=== PATIENT | female | born 1980 | race Caucasian/White ===

== ENCOUNTER 2016-09-29 22:41 | Emergency (ER) | payer MEDICAID ==
[2016-09-29 22:49] VITALS: BP 135/96
--- NOTE | 2016-09-30 00:31 | EDM.PDOC ---
ED HPI GENERAL MEDICAL PROBLEM - General Chief Complaint: Back Pain or Injury Stated Complaint: LOWER BACK PAIN Time Seen by Provider: 09/30/16 00:31 - History of Present Illness INITIAL COMMENTS - FREE TEXT/NARRATIVE: 35-year-old female presents emergency room with low back pain. This is been getting worse for the last several days the patient is concerned perhaps she is . Patient denies any recent trauma or falls she has a history of herniated disks but this is a different type of discomfort. She is not having any pain down her legs she's had no loss of bowel or bladder control. Patient denies any significant abdominal discomfort no nausea vomiting diarrhea or constipation. She is not having any leg pain or tingling or numbness. Pain is localized to her low back Lower Back Pain Score (Numeric/FACES): 7 - Related Data Allergies Allergy/AdvReac Type Severity Reaction Status Date / Time acetaminophen [From Vicodin] Allergy Anaphylactic Verified 09/29/16 22:49 Shock hydrocodone bitartrate Allergy Anaphylactic Verified 09/29/16 22:49 [From Vicodin] Shock bees Allergy Bronchospas Uncoded 09/29/16 22:49 ms Home Meds: Home Meds Escitalopram [Lexapro] 10 mg PO DAILY 09/29/16 [History] Gabapentin [Neurontin] 600 mg PO BEDTIME 09/29/16 [History] Mometasone/Formoterol [Dulera 100-5 MCG] 1 inh INH BID 09/29/16 [History] Montelukast [Singulair] 1 tab PO BEDTIME 09/29/16 [History] Topiramate [Topamax] 50 mg PO BID 09/29/16 [History] Past Medical History 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: 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: Musculoskeletal History: Reports: Other (See Below) Other Musculoskeletal History: sciatica pain - Past Surgical History GI Surgical History: Reports: Cholecystectomy Female Surgical History: Reports: Tubal Ligation Social & Family History - Tobacco Use Smoking Status *Q: Current Every Day Smoker Years of Tobacco use: 15 Packs/Tins Daily: 0.5 - Caffeine Use Caffeine Use: Reports: Soda - Recreational Drug Use Recreational Drug Use: No ED ROS GENERAL - Review of Systems Review Of Systems: See Below Constitutional: Reports: No Symptoms Respiratory: Reports: No Symptoms Cardiovascular: Reports: No Symptoms GI/Abdominal: Reports: No Symptoms Musculoskeletal: Reports: Back Pain Neurological: Reports: No Symptoms ED EXAM,LOWER BACK PAIN/INJURY - Physical Exam Exam: See Below Exam Limited By: No Limitations General Appearance: Alert, No Apparent Distress Neck: Normal Inspection, Supple, Non-Tender, Full Range of Motion. No: Tender Midline Respiratory/Chest: No Respiratory Distress, Lungs Clear, Normal Breath Sounds Cardiovascular: Regular Rate, Rhythm, No Edema, No Murmur GI/Abdominal: Normal Bowel Sounds, Soft, Non-Tender Back Exam: Normal Inspection, Other (She has some mild paraspinous discomfort no spinous process tenderness with palpation no midline discomfort). No: CVA Tenderness (L), CVA Tenderness (R) Extremities: Normal Inspection, No Pedal Edema, Other (Distracted straight leg raises normal.) Course - Vital Signs Last Recorded V/S: Last Vital Signs Temp 36.6 C 09/29/16 22:46 Pulse 88 09/29/16 22:46 Resp 16 09/29/16 22:46 BP 135/96 H 09/29/16 22:46 Pulse Ox 100 09/29/16 22:46 - Orders/Labs/Meds Labs: Laboratory Tests 09/30/16 Range/Units 00:42 Urine HCG, Qual Negative (NEGATIVE) Meds: Medications Discontinued Medications Generic Name Dose Route Start Last Admin Trade Name Sugar PRN Reason Stop Dose Admin Ketorolac Tromethamine 30 mg 09/30/16 01:09 09/30/16 01:15 Toradol IM 09/30/16 01:10 30 mg ONETIME ONE Administration - Radiology Interpretation Free Text/Narrative:: confirmed to be negative then the patient received 30 mg of Toradol and is doing better. Departure - Departure Time of Disposition: 01:43 Disposition: Home, Self-Care 01 Clinical Impression: Low back pain - Discharge Information Forms: ED Department Discharge Additional Instructions: Return to the emergency room with any questions problems or worsening symptoms. Tomorrow start Aleve 220 mg 2 tablets twice daily with meals. Start famotidine or Pepcid 20 mg daily. Follow-up in the clinic early next week for recheck.
[2016-09-30] MEDS ORDERED: Ketorolac 30 MG/ML SDV IM ONE (01:09)
== END 2016-09-30 01:55 | disposition home or self-care (01) ==
LOC: JD.ED 22:41
DX: M54.5 Low back pain (principal); F17.210 Nicotine dependence, cigarettes, uncomplicated; J45.909 Unspecified asthma, uncomplicated; Z98.51 Tubal ligation status; Z90.49 Acquired absence of other specified parts of digestive tract; Z79.899 Other long term (current) drug therapy; Z91.030 Bee allergy status; Z88.6 Allergy status to analgesic agent
CPT/HCPCS: 81025; 96372; 99283; J1885

== ENCOUNTER 2017-01-08 15:46 | Emergency (ER) | payer MEDICAID ==
[2017-01-08 16:05] VITALS: BP 137/89
--- NOTE | 2017-01-08 16:32 | EDM.PDOC ---
ED HPI GENERAL MEDICAL PROBLEM - General Chief Complaint: ENT Problem Stated Complaint: POSS EAR INFECTION Time Seen by Provider: 01/08/17 16:06 Source of Information: Reports: Patient, RN Notes Reviewed - History of Present Illness INITIAL COMMENTS - FREE TEXT/NARRATIVE: 36 show female comes in with severe right ear discomfort. She's had this on and off for the past 3 days but worse last night and today. The pain comes and goes but when present very severe, sharp and stabbing. Has had mild nasal and sinus congestion for a few days and very mild scratchy throat. No obvious fever. There 's been no drainage from the ear. 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 (see below) Other Treatments INVESTMENT BANKING MANAGER: tylenol and motrin Right Ear Pain Score (Numeric/FACES): 8 - Related Data Allergies Allergy/AdvReac Type Severity Reaction Status Date / Time acetaminophen [From Vicodin] Allergy Anaphylactic Verified 09/29/16 22:49 Shock hydrocodone bitartrate Allergy Anaphylactic Verified 09/29/16 22:49 [From Vicodin] Shock bees Allergy Bronchospas Uncoded 09/29/16 22:49 ms Home Meds: Home Meds Escitalopram [Lexapro] 10 mg PO DAILY 09/29/16 [History] Montelukast [Singulair] 1 tab PO BEDTIME 09/29/16 [History] Topiramate [Topamax] 50 mg PO BID 09/29/16 [History] Albuterol [Proventil HFA] 1 - 2 puff INH ASDIRECTED PRN 01/08/17 [History] Fluticasone/Salmeterol [Advair 250-50 Diskus] 1 puff INH BID 01/08/17 [History] Past Medical History 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 Denies: Dental Pain, Ear Discharge (, right ear) Respiratory: Denies: Shortness of Breath, Cough Cardiovascular: Denies: Chest Pain GI/Abdominal: Reports: No Symptoms Musculoskeletal: Reports: No Symptoms Skin: Reports: No Symptoms. Denies: Rash Neurological: Reports: No Symptoms ED EXAM, ENT - Physical Exam Exam: See Below General Appearance: Alert, No Apparent Distress Eye Exam: Bilateral Eye: PERRL Ears: Normal External Exam, Normal Canal, TM Bulging (Mild bilateral), TM Fluid (Moderate right-sided), Other (There is no tenderness of the outer canal area) Nose: Normal Inspection Mouth/Throat: Normal Inspection Head: Atraumatic. No: Facial Swelling, Facial Tenderness Respiratory/Chest: No Respiratory Distress, Lungs Clear Cardiovascular: Regular Rate, Rhythm Extremities: Normal Inspection Neurological: Alert, Oriented, No Motor/Sensory Deficits Skin: Warm, Dry, Normal Color, No Rash Course - Vital Signs Last Recorded V/S: Last Vital Signs Temp 98.0 F 01/08/17 16:04 Pulse 78 01/08/17 16:04 Resp 20 01/08/17 16:04 BP 137/89 01/08/17 16:04 Pulse Ox 98 01/08/17 16:04 Departure - Departure Time of Disposition: 16:31 Disposition: Home, Self-Care 01 Condition: Fair Clinical Impression: Otitis media Qualifiers: Otitis media type: serous Chronicity: acute Laterality: right Recurrence: not specified as recurrent Qualified Code(s): H65.01 - Acute serous otitis media, right ear - Discharge Information Referrals: Janny Chavarria MD [Primary Care Provider] - Forms: ED Department Discharge Additional Instructions: Amoxicillin 1000 mg by mouth needed prescription filled, then 500 mg at bedtime and then continue 1000 mg or 2 500 mg capsules twice daily until gone, Tylenol or ibuprofen for mild to moderate discomfort or one half tablet Percocet every 4 -6 hours if needed for severe pain. Do not drive or work when taking Percocet, follow-up clinic if not much better within 3-4 days as expected, return to ED if symptoms worsening in any way
== END 2017-01-08 16:40 | disposition home or self-care (01) ==
LOC: JD.ED 15:46
DX: H65.01 Acute serous otitis media, right ear (principal); J45.909 Unspecified asthma, uncomplicated; F17.210 Nicotine dependence, cigarettes, uncomplicated; Z88.6 Allergy status to analgesic agent; Z88.5 Allergy status to narcotic agent; Z79.899 Other long term (current) drug therapy
CPT/HCPCS: 99283

== ENCOUNTER 2017-04-20 17:54 | Emergency (ER) | payer MEDICAID ==
[2017-04-20 18:05] VITALS: BP 157/92
--- NOTE | 2017-04-20 18:36 | EDM.PDOC ---
<MarilynMaggie jackson - Last Filed: 04/20/17 18:27> ED HPI GENERAL MEDICAL PROBLEM - General Chief Complaint: Back Pain or Injury Stated Complaint: SLIPPED ON ICE Time Seen by Provider: 04/20/17 19:00 - History of Present Illness INITIAL COMMENTS - FREE TEXT/NARRATIVE: Patient is a 36 year old female here today for complaints of coccyx pain following a fall. She reports she fell on ice while getting out of a vehicle and landed on her coccyx. She denies hitting her head or loss of consciousness. She states she has associated numbness and tingling in her bilateral legs. She has associated nausea do to pain but no vomiting. She denies previous buttocks or pelvic injuries. Sacral Pain Score (Numeric/FACES): 9 - Related Data Allergies Allergy/AdvReac Type Severity Reaction Status Date / Time acetaminophen [From Vicodin] Allergy Anaphylactic Verified 04/20/17 18:01 Shock hydrocodone bitartrate Allergy Anaphylactic Verified 04/20/17 18:01 [From Vicodin] Shock bees Allergy Bronchospas Uncoded 09/29/16 22:49 ms Home Meds: Home Meds Escitalopram [Lexapro] 10 mg PO DAILY 09/29/16 [History] Montelukast [Singulair] 1 tab PO BEDTIME 09/29/16 [History] Topiramate [Topamax] 100 mg PO DAILY 09/29/16 [History] Albuterol [Proventil HFA] 1 - 2 puff INH ASDIRECTED PRN 01/08/17 [History] Fluticasone/Salmeterol [Advair 250-50 Diskus] 1 puff INH BID 01/08/17 [History] Acetaminophen/oxyCODONE [Percocet 325-5 MG] 1 tab PO Q4HR PRN #20 tab 04/20/17 [ Rx] Past Medical History 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: Musculoskeletal History: Reports: Back Pain, Chronic, Other (See Below) Other Musculoskeletal History: sciatica pain Neurological History: Reports: Migraines Psychiatric History: Reports: Anxiety - Past Surgical History GI Surgical History: Reports: Cholecystectomy Female Surgical History: Reports: Tubal Ligation Social & Family History - Tobacco Use Smoking Status *Q: Current Every Day Smoker Years of Tobacco use: 12 Packs/Tins Daily: 0.5 Used Tobacco, but Quit: No - Caffeine Use Caffeine Use: Reports: None - Recreational Drug Use Recreational Drug Use: No ED ROS GENERAL - Review of Systems Musculoskeletal: Reports: Back Pain, Leg Pain Neurological: Reports: Numbness (in bilateral legs), Tingling (in bilateral legs ) ED EXAM,LOWER BACK PAIN/INJURY - Physical Exam Exam Limited By: No Limitations Back Exam: Normal Inspection, Other (coccyx tenderness) Extremities: Normal Inspection, Normal Range of Motion, Non-Tender Neurological: Alert, Normal Mood/Affect, Normal Dorsiflexion, Normal Plantar Flexion Course - Vital Signs Last Recorded V/S: Last Vital Signs Temp 36.2 C 04/20/17 18:02 Pulse 73 04/20/17 18:02 Resp 18 04/20/17 18:02 BP 157/92 H 04/20/17 18:02 Pulse Ox 95 04/20/17 18:02 - Orders/Labs/Meds Meds: Medications Discontinued Medications Generic Name Dose Route Start Last Admin Trade Name Freq PRN Reason Stop Dose Admin Ketorolac Tromethamine 60 mg 04/20/17 19:13 04/20/17 19:21 Toradol IM 04/20/17 19:14 60 mg ONETIME ONE Administration Ondansetron HCl 4 mg 04/20/17 18:41 04/20/17 19:07 Zofran Odt PO 04/20/17 18:42 4 mg ONETIME ONE Administration Departure - Departure Disposition: Home, Self-Care 01 Clinical Impression: Fractured coccyx Qualifiers: Encounter type: initial encounter Fracture type: closed Qualified Code(s): S32.2XXA - Fracture of coccyx, initial encounter for closed fracture - Discharge Information Prescriptions: Acetaminophen/oxyCODONE [Percocet 325-5 MG] 1 tab PO Q4HR PRN #20 tab PRN Reason: Pain Instructions: Tailbone Injury, [id number] Referrals: Janny Chavarria MD [Primary Care Provider] - Forms: ED Department Discharge Additional Instructions: Recommend using ice or heat for the to the sore areas. Take [id number] Tylenol or Motrin as needed for pain relief. For pain not relieved by Tylenol or Motrin may take Percocet 1 tab every 4-[address] machinery within 12 hours of taking Percocet. Percocet can be habit-forming, take as few these as needed to control your pain. Recommend purchasing a donut pillow, these are available at the medical supply [employer] and [employer]. follow-up with family practice provider within 2 weeks. Please return to the ER if your symptoms change or worsen. <Adrianne Bojorquez - Last Filed: 04/22/17 13:54> ED HPI GENERAL MEDICAL PROBLEM - General Source of Information: Reports: Patient History Limitations: Reports: No Limitations - History of Present Illness INITIAL COMMENTS - FREE TEXT/NARRATIVE: Patient was initially seen by DEEPA Zarco. I've seen the patient and agree with her history of present illness. Additionally, patient reports to me that her pain is currently a 9 out of 10. She states that she has having trouble sitting due to the pain. She did drive herself here to the ER. ED ROS GENERAL - Review of Systems Review Of Systems: See Below GI/Abdominal: Reports: Nausea. Denies: Vomiting Musculoskeletal: Reports: Back Pain (low back/buttocks) ED EXAM,LOWER BACK PAIN/INJURY - Physical Exam Exam: See Below Exam Limited By: No Limitations General Appearance: Alert, WD/WN, Mild Distress Respiratory/Chest: No Respiratory Distress Cardiovascular: Normal Peripheral Pulses (2+ posterior tibialis), Regular Rate, Rhythm Back Exam: Normal Inspection. No: Vertebral Tenderness Psychiatric: Normal Affect, Normal Mood Skin Exam: Warm, Dry, Normal Color Course - Radiology Interpretation Free Text/Narrative:: X-ray of the sacrum and coccyx show a questionable coccyx fracture. Previous lumbar spine x-rays for comparison. - Re-Assessments/Exams Free Text/Narrative Re-Assessment/Exam: 04/20/17 19:56 The patient was initially seen by DEEPA Zarco. I agree with the history of present illness, review of systems and physical exam as documented by Maggie. The patient was given the option for a CT scan, however, she was educated that likely even if there is a hairline fracture in her coccyx this will not change our treatment plan. She was offered a CT scan port versus plain films and opted instead for the plain films which I feels appropriate. Patient was offered pain medication, however, because she drove here and did not have a right home we will give her Toradol here in the ER. I reviewed the x-ray results with the patient. We will discharge her home with pain medications. Discharge instructions as documented. Departure - Departure Time of Disposition: 19:57 Condition: Fair
[2017-04-20] MEDS: Ondansetron 4 MG Tab.DIS PO ONE (19:07)
[2017-04-20] MEDS: Ketorolac 60 MG/2 ML SDV IM ONE (19:21)
--- NOTE | 2017-04-21 06:03 | CR ---
Sacrum and coccyx: Three views of the sacrum and coccyx were obtained. Disc space narrowing labeled as S1-S2 is seen most likely due to rudimentary disc and transitional segment. Mild sclerosis compatible with slight degenerative change is noted within the left sacroiliac joint. No fracture or other acute abnormality is seen. Impression: 1. Nonacute findings as noted above. Nothing acute is appreciated. Diagnostic code #2
== END 2017-04-20 20:21 | disposition home or self-care (01) ==
LOC: JD.ED 17:54
DX: S32.2XXA Fracture of coccyx, initial encounter for closed fracture (principal); F17.210 Nicotine dependence, cigarettes, uncomplicated; Z79.899 Other long term (current) drug therapy; Z88.6 Allergy status to analgesic agent; Z88.5 Allergy status to narcotic agent; Z91.030 Bee allergy status; W00.2XXA Other fall from one level to another due to ice and snow, initial encounter
CPT/HCPCS: 72220; 96372; 99284; A9270; J1885

== ENCOUNTER 2018-07-02 20:02 | Emergency (ER) | payer SELFPAY ==
[2018-07-02 20:26] VITALS: BP 142/92
[2018-07-02] MEDS ORDERED: Sodium Chloride 0.9% 10 ML Syringe FLUSH PRN (20:34)
--- NOTE | 2018-07-02 20:50 | EDM.PDOC ---
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 Discomfort comes and goes. She is concerned that her LMP was back in February 3 months ago, before that had been regular. No vaginal bleeding or spotting. Hx of tubal ligation about 9 yrs ago. No upper abd, back, shoulder or chest disomfort. No nausea, vomiting or bladder sx. Lower Pelvic Pain Score (Numeric/FACES): 5 - Related Data Allergies Allergy/AdvReac Type Severity Reaction Status Date / Time acetaminophen [From Vicodin] Allergy Anaphylactic Verified 07/02/18 21:18 Shock hydrocodone bitartrate Allergy Anaphylactic Verified 07/02/18 21:18 [From Vicodin] Shock bees Allergy Bronchospas Uncoded 09/29/16 22:49 ms Home Meds: Home Meds . 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: Musculoskeletal History: Reports: Back Pain, Chronic, Other (See Below) Other Musculoskeletal History: sciatica pain Neurological History: Reports: Migraines Psychiatric History: Reports: Anxiety - Past Surgical History GI Surgical History: Reports: Cholecystectomy Female Surgical History: Reports: Tubal Ligation Other Female Surgeries/Procedures: 2009 Social & Family History - Family History Family Medical History: Noncontributory - Tobacco Use Smoking Status *Q: Current Every Day Smoker Years of Tobacco use: 16 Packs/Tins Daily: 1 - Caffeine Use Caffeine Use: Reports: None ED ROS GENERAL - Review of Systems Review Of Systems: See Below Constitutional: Denies: Fever, Chills, Diaphoresis HEENT: Denies: Throat Pain Respiratory: Denies: Shortness of Breath, Pleuritic Chest Pain, Hemoptysis GI/Abdominal: Reports: Abdominal Pain (low mid pelvic). Denies: Diarrhea, Nausea, Vomiting Musculoskeletal: Denies: Shoulder Pain, Arm Pain, Back Pain, Leg Pain Skin: Reports: No Symptoms ED EXAM - Physical Exam Exam: See Below General Appearance: Alert, No Apparent Distress Eye Exam: Bilateral Eye: PERRL Throat/Mouth: Normal Inspection, Normal Oropharynx Head: Atraumatic Neck: Supple Respiratory/Chest: No Respiratory Distress, Lungs Clear, Normal Breath Sounds Cardiovascular: Regular Rate, Rhythm GI/Abdominal Exam: Soft, Tender (very minimal tenderness low mid pelvis). No: Guarding, Rebound Extremities: No: Leg Pain Neurological: Alert, Oriented, No Motor/Sensory Deficits Skin Exam: Warm, Dry, Normal Color Course - Vital Signs Last Recorded V/S: Last Vital Signs Temp 98.5 F 07/02/18 20:23 Pulse 80 07/02/18 20:23 Resp 18 07/02/18 20:23 BP 142/92 H 07/02/18 20:23 Pulse Ox 100 07/02/18 20:23 - Orders/Labs/Meds Orders: Active Orders 24 hr Category Date Time Status Peripheral IV Care [RC] . DIRECTED Care 07/02/18 20:36 Active OB Transvaginal [US] Stat Exams 07/02/18 20:35 Taken Peripheral IV Insertion Adult [OM.PC] Stat Oth 07/02/18 20:35 Ordered Labs: Laboratory Tests 07/02/18 07/02/18 07/02/18 Range/Units 20:50 20:50 20:50 WBC 8.17 (3.98-10.04) K/mm3 RBC 4.35 (3.98-5.22) M/mm3 Hgb 10.4 L (11.2-15.7) gm/L Hct 34.1 (34.1-44.9) % MCV 78.4 L (79.4-94.8) fl MCH 23.9 L (25.6-32.2) pg MCHC 30.5 L (32.2-35.5) g/dl RDW Std Deviation 45.4 (36.4-46.3) fL Plt Count 301 (182-369) K/mm3 MPV 9.4 (9.4-12.3) fl Neut % (Auto) 58.1 (34.0-71.1) % Lymph % (Auto) 32.4 (19.3-51.7) % Coffee % (Auto) 6.6 (4.7-12.5) % Eos % (Auto) 2.6 (0.7-5.8) Baso % (Auto) 0.2 (0.1-1.2) % Neut # (Auto) 4.74 (1.56-6.13) K/mm3 Lymph # (Auto) 2.65 (1.18-3.74) K/mm3 Coffee # (Auto) 0.54 H (0.24-0.36) K/mm3 Eos # (Auto) 0.21 (0.04-0.36) K/mm3 Baso # (Auto) 0.02 (0.01-0.08) K/mm3 Sodium 143 (136-145) mEq/L Potassium 2.9 L (3.5-5.1) mEq/L Chloride 106 (98-107) mEq/L Carbon Dioxide 27 (21-32) mEq/L Anion Gap 12.9 (5-15) BUN 7 (7-18) mg/dL Creatinine 0.7 (0.55-1.02) mg/dL Est Cr Clr Drug Dosing 99.01 mL/min Estimated GFR (MDRD) > 60 (>60) mL/min BUN/Creatinine Ratio 10.0 L (14-18) Glucose 122 H (74-106) mg/dL Calcium 8.9 (8.5-10.1) mg/dL Total Bilirubin 0.2 (0.2-1.0) mg/dL AST 21 (15-37) U/L ALT 42 (14-59) U/L Alkaline Phosphatase 52 (46-116) U/L Total Protein 7.6 (6.4-8.2) g/dl Albumin 3.7 (3.4-5.0) g/dl Globulin 3.9 gm/dL Albumin/Globulin Ratio 1.0 (1-2) HCG, Qual Negative (NEGATIVE) Meds: Medications Discontinued Medications Generic Name Dose Route Start Last Admin Trade Name Freq PRN Reason Stop Dose Admin Potassium Chloride 20 meq 07/02/18 22:38 07/02/18 22:42 Klor-Con M20 PO 07/02/18 22:39 20 meq ONETIME ONE Administration Sodium Chloride 10 ml 07/02/18 20:34 07/02/18 20:55 Saline Flush FLUSH 10 ml ASDIRECTED PRN Administration Keep Vein Open - Re-Assessments/Exams Free Text/Narrative Re-Assessment/Exam: 07/02/18 22:55 pelvic US ordered after patient exam due to hx of LMP 3 months ago, 3 positive tests at home over the past 2 weeks and now 3 days hx of pelvic pain, strong need to rule out ectopic . Our serum HCG did eventually come back neg. pelvic US show R ovarian cyst, no evidence for intra or extra uterine . See report for details. Serum K did come back low at 2.9. Departure - Departure Time of Disposition: 22:44 Disposition: Home, Self-Care 01 Condition: Fair Clinical Impression: Hypokalemia Ovarian cyst Qualifiers: Laterality: right Qualified Code(s): N83.201 - Unspecified ovarian cyst, right side - Discharge Information Instructions: Ovarian Cyst, [id number] Referrals: Janny Chavarria MD [Primary Care Provider] - Forms: ED Department Discharge Additional Instructions: your potassium has come back low at 2.9. Bananas are an excellent source of potassium so try eat 1 or 2 daily. Potatoes are also high in potassium as well as other fruit and vegetables. Take a potassium supplement as well once or twice daily. Your ultrasound this evening does not show inside or outside the uterus and our HCG test did come back negative. Follow up clinic as needed. Return to ED as needed if symptoms worsening in any way. - My Orders Last 24 Hours: My Active Orders 07/02/18 20:35 OB Transvaginal [US] Stat Peripheral IV Insertion Adult [OM.PC] Stat 07/02/18 20:36 Peripheral IV Care [RC] . DIRECTED - Assessment/Plan Last 24 Hours: My Active Orders 07/02/18 20:35 OB Transvaginal [US] Stat Peripheral IV Insertion Adult [OM.PC] Stat 07/02/18 20:36 Peripheral IV Care [RC] . DIRECTED
[2018-07-02] MEDS ORDERED: Potassium Chloride 20 MEQ Tab.ER PO ONE (22:38)
--- NOTE | 2018-07-03 07:57 | US ---
Obstetrical ultrasound: Multiple real-time images were obtained transvaginally. Comparison: No previous study. No gestational sac seen within the endometrial cavity. No adnexal abnormalities are seen. Incidental nabothian cyst is present. Endometrial thickness is 9 mm. Follicles are seen within both ovaries. Small hypoechoic area is noted within the right ovary most likely due to small corpus luteum cyst that is collapsing. No free fluid is seen. Impression: 1. No intrauterine gestational sac or adnexal abnormalities. If patient has a positive test, findings could represent miscarriage, unlikely nonvisualized ectopic or too early to visualize. Diagnostic code #1 I agree with preliminary report from [facility], finalized on 07/02/18, 11:03 PM Central Time q
== END 2018-07-02 22:52 | disposition home or self-care (01) ==
LOC: JD.ED 20:02
DX: N83.201 Unspecified ovarian cyst, right side (principal); F17.210 Nicotine dependence, cigarettes, uncomplicated; E87.6 Hypokalemia; Z88.8 Allergy status to other drugs, medicaments and biological substances; Z91.030 Bee allergy status
CPT/HCPCS: 36415; 76817; 80053; 84703; 85025; 99284; A9270; 99283

== ENCOUNTER 2020-06-14 19:23 | Emergency (ER) | payer MEDICAID ==
[2020-06-14 19:35] VITALS: BP 162/72; PULSE 73
--- NOTE | 2020-06-14 19:57 | EDM.PDOC ---
ED HPI GENERAL MEDICAL PROBLEM - General Chief Complaint: General Stated Complaint: SWOLLEN GLANDS Time Seen by Provider: 06/14/20 19:34 Source of Information: Reports: Patient History Limitations: Reports: No Limitations - History of Present Illness INITIAL COMMENTS - FREE TEXT/NARRATIVE: This is a 39-year-old female. She has rheumatoid arthritis and she was on prednisone for about 11 months and it did not seem to be helping so 4 weeks ago they switched over to methotrexate. Over the last week she has noted that her lymph nodes and body have been hurting and aching and some mild swelling she has had some burning in her mouth but no actual sores and a lot of abdominal discomfort that feels like distention or bloating. She comes to the ER because the soreness in her muscles in her lymph nodes is getting to the point where she cannot tolerate it. She denies any fever or chills she has had no diarrhea she has had no rash. Due to the constant aching and soreness she is not able to sleep. Denies any fever or chills she does have a history of asthma but that has not flared up and she has had no cough. - Related Data Allergies Allergy/AdvReac Type Severity Reaction Status Date / Time acetaminophen [From Vicodin] Allergy Anaphylactic Verified 06/14/20 19:35 Shock hydrocodone bitartrate Allergy Anaphylactic Verified 06/14/20 19:35 [From Vicodin] Shock bees Allergy Bronchospas Uncoded 09/29/16 22:49 ms Home Meds: Home Meds Albuterol [Ventolin HFA] 1 puff INH BID PRN 06/14/20 [History] Folic Acid 1 mg PO FR 06/14/20 [History] Methotrexate 10 mg PO FR 06/14/20 [History] Montelukast Sodium [Singulair] 10 mg PO BEDTIME 06/14/20 [History] Topiramate [Topamax] 50 mg PO BID 06/14/20 [History] traMADol [Ultram] 50 mg PO Q4H PRN #12 tab 06/14/20 [Rx] Past Medical History - Past Health History Medical/Surgical History: Denies Medical/Surgical History 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: Asthma [employer]ER History: Reports: Musculoskeletal History: Reports: Back Pain, Chronic, Other (See Below) Other Musculoskeletal History: sciatica pain Neurological History: Reports: Migraines Psychiatric History: Reports: Anxiety - Past Surgical History GI Surgical History: Reports: Cholecystectomy Female Surgical History: Reports: Tubal Ligation Other Female Surgeries/Procedures: 2010 Social & Family History - Family History Family Medical History: No Pertinent Family History - Tobacco Use Tobacco Use Status *Q: Current Every Day Tobacco User Years of Tobacco use: 20 Packs/Tins Daily: 0.5 - Caffeine Use Caffeine Use: Reports: None - Recreational Drug Use Recreational Drug Use: No ED ROS GENERAL - Review of Systems Review Of Systems: See Below Constitutional: Reports: Malaise. Denies: Fever, Chills HEENT: Reports: Other (Mouth burning) Respiratory: Denies: Shortness of Breath, Cough Cardiovascular: Denies: Chest Pain Endocrine: Reports: No Symptoms GI/Abdominal: Reports: Distension. Denies: Diarrhea, Nausea, Vomiting : Reports: No Symptoms Musculoskeletal: Reports: Other (Myalgias) Skin: Reports: No Symptoms Neurological: Reports: No Symptoms Psychiatric: Reports: No Symptoms Hematologic/Lymphatic: Reports: No Symptoms ED EXAM, GENERAL - Physical Exam Exam: See Below Exam Limited By: No Limitations General Appearance: Alert, WD/WN, No Apparent Distress Eye Exam: Bilateral Eye: Normal Inspection Ears: Normal External Exam Throat/Mouth: Normal Inspection, Normal Lips, Normal Voice, No Airway Compromise, Other (No stomatitis is noted.) Head: Normocephalic Neck: Supple, Other (She is tender in the submental area bilaterally may be some mild swelling but I do not feel a lot of enlarged lymph nodes.) Respiratory/Chest: No Respiratory Distress, Lungs Clear, Normal Breath Sounds, Other (She complains of sternal notch and clavicle area tenderness and swelling but I do not feel any lymph nodes presently.) Cardiovascular: Regular Rate, Rhythm, No Murmur GI/Abdominal: Soft, Non-Tender Back Exam: Full Range of Motion Extremities: Normal Range of Motion, Other (In her right axilla she has a slightly enlarged boggy type lymph node with this tender it does not seem to be in the left axilla or in her groins bilaterally. She does complain of swelling in her neck and also her anterior chest.) Neurological: Alert, Oriented Psychiatric: Normal Affect, Normal Mood Skin Exam: Warm, Dry Course - Vital Signs Last Recorded V/S: Last Vital Signs Temp 97.6 F 06/14/20 19:33 Pulse 73 06/14/20 19:33 Resp 16 06/14/20 19:33 BP 162/72 H 06/14/20 19:33 Pulse Ox 99 06/14/20 19:33 - Orders/Labs/Meds Labs: Laboratory Tests 06/14/20 06/14/20 Range/Units 20:18 20:18 WBC 8.36 (3.98-10.04) K/mm3 RBC 4.42 (3.98-5.22) M/mm3 Hgb 11.2 (11.2-15.7) gm/dl Hct 36.2 (34.1-44.9) % MCV 81.9 D (79.4-94.8) fl MCH 25.3 L (25.6-32.2) pg MCHC 30.9 L (32.2-35.5) g/dl RDW Std Deviation 47.2 H (36.4-46.3) fL Plt Count 239 (182-369) K/mm3 MPV 9.7 (9.4-12.3) fl Neut % (Auto) 56.0 (34.0-71.1) % Lymph % (Auto) 33.9 (19.3-51.7) % [place] % (Auto) 6.7 (4.7-12.5) % Eos % (Auto) 3.0 (0.7-5.8) Baso % (Auto) 0.2 (0.1-1.2) % Neut # (Auto) 4.68 (1.56-6.13) K/mm3 Lymph # (Auto) 2.83 (1.18-3.74) K/mm3 [place] # (Auto) 0.56 H (0.24-0.36) K/mm3 Eos # (Auto) 0.25 (0.04-0.36) K/mm3 Baso # (Auto) 0.02 (0.01-0.08) K/mm3 Sodium 142 (136-145) mEq/L Potassium 3.6 (3.5-5.1) mEq/L Chloride 108 H (98-107) mEq/L Carbon Dioxide 23 (21-32) mEq/L Anion Gap 14.6 (5-15) BUN 12 (7-18) mg/dL Creatinine 0.7 (0.55-1.02) mg/dL Est Cr Clr Drug Dosing 97.09 mL/min Estimated GFR (MDRD) > 60 (>60) mL/min BUN/Creatinine Ratio 17.1 (14-18) Glucose 132 H (74-106) mg/dL Calcium 8.4 L (8.5-10.1) mg/dL Total Bilirubin 0.3 (0.2-1.0) mg/dL AST 36 (15-37) U/L ALT 73 H (14-59) U/L Alkaline Phosphatase 43 L (46-116) U/L Creatine Kinase 118 (26-192) U/L C-Reactive Protein 2.0 H* (<1.0) mg/dL Total Protein 7.1 (6.4-8.2) g/dl Albumin 3.4 (3.4-5.0) g/dl Globulin 3.7 gm/dL Albumin/Globulin Ratio 0.9 L (1-2) - Re-Assessments/Exams Free Text/Narrative Re-Assessment/Exam: 06/14/20 21:26 I spoke to the patient regarding her lab results. She does not appear to have bone marrow suppression, her liver enzymes are good her kidney function looks good. Her C-reactive protein was 2 which is just mildly elevated. She only takes methotrexate once a week and that was on Tuesday. I encouraged her to call her water commissioner on Tuesday to see if they want her to continue the methotrexate next Tuesday with the symptoms that seems to be developing. The patient states she understands. Departure - Departure Time of Disposition: 21:27 Disposition: Home, Self-Care 01 Condition: Fair Clinical Impression: Myalgia, Lymphadenitis Rheumatoid arthritis Qualifiers: Rheumatoid arthritis location: multiple sites Rheumatoid factor presence: unspecified presence Qualified Code(s): M06.9 - Rheumatoid arthritis, unspecified - Discharge Information *PRESCRIPTION DRUG MONITORING PROGRAM REVIEWED*: Not Applicable *COPY OF PRESCRIPTION DRUG MONITORING REPORT IN PATIENT IRINEO: Not Applicable Prescriptions: traMADol [Ultram] 50 mg PO Q4H PRN #12 tab PRN Reason: Pain Instructions: Muscle Pain, Adult, Arthritis, [id number] Referrals: Janny Chavarria MD [Primary Care Provider] - Forms: ED Department Discharge Additional Instructions: On Tuesday call your water commissioner and let them know the symptoms that you are having of the burning in the mouth and the abdominal discomfort and the swelling and pain of the lymph nodes in general muscle pain, certainly take the tramadol as needed for comfort, let the water commissioner know that your complete blood count was essentially normal with no suppression of the bone marrow, your kidney function and liver function were normal, your C-reactive protein was 2. Follow- up with the water commissioner as they suggest and continue your medications as they suggest, return to the ER if needed Sepsis Event Note (ED) - Evaluation Sepsis Screening Result: No Definite Risk - Focused Exam Vital Signs: Vital Signs Temp Pulse Resp BP Pulse Ox 06/14/20 19:33 97.6 F 73 16 162/72 H 99
== END 2020-06-14 21:42 | disposition home or self-care (01) ==
LOC: JD.ED 19:23
DX: M06.9 Rheumatoid arthritis, unspecified (principal); I88.9 Nonspecific lymphadenitis, unspecified; J45.909 Unspecified asthma, uncomplicated; Z88.6 Allergy status to analgesic agent; Z88.5 Allergy status to narcotic agent; Z91.030 Bee allergy status; Z79.899 Other long term (current) drug therapy; Z72.0 Tobacco use
CPT/HCPCS: 36415; 80053; 82550; 85025; 86140; 99283

== ENCOUNTER 2020-08-23 19:34 | Emergency (ER) | payer MEDICAID ==
[2020-08-23] MEDS ORDERED: Sodium Chloride 0.9% 1,000 ML IV STA (20:04)
--- NOTE | 2020-08-23 20:14 | EDM.PDOC ---
ED HPI GENERAL MEDICAL PROBLEM - General Chief Complaint: Abdominal Pain Stated Complaint: LOWER ABDOMINAL PAIN Time Seen by Provider: 08/23/20 19:41 Source of Information: Reports: Patient, RN Notes Reviewed History Limitations: Reports: No Limitations - History of Present Illness INITIAL COMMENTS - FREE TEXT/NARRATIVE: Patient is a 39-year-old female presenting to the emergency department with complaints of lower abdominal pain. Reports that she felt well last evening upon going to sleep, however she awoke with this discomfort. It has been consistently painful throughout the day. She has had no nausea, vomiting, diarrhea, fever, or chills. Reports pain is throughout her lower abdomen. States she had a normal bowel movement yesterday. Denies the possibility of pr egnancy as she has had her tubes tied. She has also had her gallbladder out in the past. She still has her appendix. Denies any history of diverticulitis. She does have a history of RA but denies any history of colitis. Lower Abdominal Pain Score (Numeric/FACES): 8 - Related Data Allergies Allergy/AdvReac Type Severity Reaction Status Date / Time acetaminophen [From Vicodin] Allergy Anaphylactic Verified 08/23/20 19:50 Shock bee venom protein (honey bee) Allergy Bronchospas Verified 08/23/20 19:50 ms hydrocodone bitartrate Allergy Anaphylactic Verified 08/23/20 19:50 [From Vicodin] Shock Home Meds: Home Meds Albuterol [Ventolin HFA] 1 puff INH BID PRN 06/14/20 [History] Folic Acid 1 mg PO FR 06/14/20 [History] Methotrexate 10 mg PO FR 06/14/20 [History] Montelukast Sodium [Singulair] 10 mg PO BEDTIME 06/14/20 [History] Topiramate [Topamax] 50 mg PO BID 06/14/20 [History] Past Medical History - Past Health History Medical/Surgical History: Denies Medical/Surgical History 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: Asthma [employer]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 History: Reports: Musculoskeletal History: Reports: Back Pain, Chronic, Other (See Below) Other Musculoskeletal History: sciatica pain Neurological History: Reports: Migraines Psychiatric History: Reports: Anxiety - Past Surgical History GI Surgical History: Reports: Cholecystectomy Female Surgical History: Reports: Tubal Ligation Other Female Surgeries/Procedures: 2010 Social & Family History - Family History Family Medical History: No Pertinent Family History - Tobacco Use Tobacco Use Status *Q: Current Every Day Tobacco User Years of Tobacco use: 20 Packs/Tins Daily: 0.5 - Caffeine Use Caffeine Use: Reports: None ED ROS GENERAL - Review of Systems Review Of Systems: See Below Constitutional: Reports: No Symptoms. Denies: Fever, Chills HEENT: Reports: No Symptoms Respiratory: Reports: No Symptoms Cardiovascular: Reports: No Symptoms Endocrine: Reports: No Symptoms GI/Abdominal: Reports: Abdominal Pain (lower abdomen). Denies: Constipation, Diarrhea, Nausea, Vomiting : Reports: No Symptoms Musculoskeletal: Reports: No Symptoms Skin: Reports: No Symptoms Neurological: Reports: No Symptoms Psychiatric: Reports: No Symptoms Hematologic/Lymphatic: Reports: No Symptoms Immunologic: Reports: No Symptoms ED EXAM, GI/ABD - Physical Exam Exam: See Below Exam Limited By: No Limitations General Appearance: Alert, WD/WN, No Apparent Distress Respiratory/Chest: No Respiratory Distress, Lungs Clear, Normal Breath Sounds, No Accessory Muscle Use, Chest Non-Tender Cardiovascular: Normal Peripheral Pulses, Regular Rate, Rhythm, No Edema, No Gallop, No JVD, No Murmur, No Rub GI/Abdominal Exam: Normal Bowel Sounds, Soft, No Organomegaly, No Distention, No Abnormal Bruit, No Mass, Pelvis Stable, Tender (Left lower quadrant and left mid abdomen) Neurological: Alert, Oriented, CN II-XII Intact, Normal Cognition, Normal Gait, Normal Reflexes, No Motor/Sensory Deficits Psychiatric: Normal Affect, Normal Mood Skin Exam: Warm, Dry, Intact, Normal Color, No Rash Course - Vital Signs Last Recorded V/S: Last Vital Signs Temp 97.6 F 08/23/20 19:48 Pulse 84 08/23/20 19:48 Resp 18 08/23/20 19:48 BP 145/97 H 08/23/20 19:48 Pulse Ox 97 08/23/20 19:48 - Orders/Labs/Meds Orders: Active Orders 24 hr Category Date Time Status Abdomen Pelvis w Cont [CT] Stat Exams 08/23/20 20:04 Taken Sodium Chloride 0.9% [Normal Saline] 1,000 ml Med 08/23/20 20:04 Active IV NOW Sodium Chloride 0.9% [Normal Saline] 100 ml Med 08/23/20 22:00 Active IV ASDIRECTED Sodium Chloride 0.9% [Saline Flush] Med 08/23/20 22:00 Active 10 ml FLUSH BOLUS Medication Orders Sodium Chloride (Normal Saline) 1,000 mls @ 150 mls/hr IV NOW STA Stop: 08/24/20 02:43 Last Admin: 08/23/20 20:16 Dose: 150 mls/hr Documented by: EMILY Sodium Chloride (Normal Saline) 100 mls @ 60 drops/min IV ASDIRECTED MIGUEL ANGEL Last Admin: 08/23/20 22:04 Dose: 60 drops/min Documented by: ANAHY Sodium Chloride (Sodium Chloride 0.9% 10 Ml Syringe) 10 ml FLUSH BOLUS [facility] Last Admin: 08/23/20 22:04 Dose: 10 ml Documented by: ANAHY Labs: Laboratory Tests 08/23/20 08/23/20 08/23/20 Range/Units 20:03 20:10 20:10 WBC 10.24 H (3.98-10.04) K/mm3 RBC 4.67 (3.98-5.22) M/mm3 Hgb 11.7 (11.2-15.7) gm/dl Hct 37.4 (34.1-44.9) % MCV 80.1 (79.4-94.8) fl MCH 25.1 L (25.6-32.2) pg MCHC 31.3 L (32.2-35.5) g/dl RDW Std Deviation 46.2 (36.4-46.3) fL Plt Count 312 (182-369) K/mm3 MPV 9.7 (9.4-12.3) fl Neut % (Auto) 65.8 (34.0-71.1) % Lymph % (Auto) 26.7 (19.3-51.7) % [place] % (Auto) 6.1 (4.7-12.5) % Eos % (Auto) 0.9 (0.7-5.8) Baso % (Auto) 0.2 (0.1-1.2) % Neut # (Auto) 6.75 H (1.56-6.13) K/mm3 Lymph # (Auto) 2.73 (1.18-3.74) K/mm3 [place] # (Auto) 0.62 H (0.24-0.36) K/mm3 Eos # (Auto) 0.09 (0.04-0.36) K/mm3 Baso # (Auto) 0.02 (0.01-0.08) K/mm3 Manual Slide Review Normal smear Sodium (136-145) mEq/L Potassium (3.5-5.1) mEq/L Chloride (98-107) mEq/L Carbon Dioxide (21-32) mEq/L Anion Gap (5-15) BUN (7-18) mg/dL Creatinine (0.55-1.02) mg/dL Est Cr Clr Drug Dosing mL/min Estimated GFR (MDRD) (>60) mL/min BUN/Creatinine Ratio (14-18) Glucose (70-99) mg/dL Calcium (8.5-10.1) mg/dL Total Bilirubin (0.2-1.0) mg/dL AST (15-37) U/L ALT (14-59) U/L Alkaline Phosphatase (46-116) U/L C-Reactive Protein (<1.0) mg/dL Total Protein (6.4-8.2) g/dl Albumin (3.4-5.0) g/dl Globulin gm/dL Albumin/Globulin Ratio (1-2) HCG, Qual Negative (NEGATIVE) Urine Color Yellow (Yellow) Urine Appearance Clear (Clear) Urine pH 7.0 (5.0-8.0) Ur Specific [place] 1.010 (1.005-1.030) Urine Protein Negative (Negative) Urine Glucose (UA) Negative (Negative) Urine Ketones Negative (Negative) Urine Occult Blood Negative (Negative) Urine Nitrite Negative (Negative) Urine Bilirubin Negative (Negative) Urine Urobilinogen 0.2 (0.2-1.0) Ur Leukocyte Esterase Negative (Negative) Urine RBC 0-5 (0-5) /hpf Urine WBC 0-5 (0-5) /hpf Ur Squamous Epith Cells 0-5 (0-5) /hpf Urine Bacteria Few (FEW) /hpf Urine Mucus Few (FEW) /hpf 08/23/20 Range/Units 20:10 WBC (3.98-10.04) K/mm3 RBC (3.98-5.22) M/mm3 Hgb (11.2-15.7) gm/dl Hct (34.1-44.9) % MCV (79.4-94.8) fl MCH (25.6-32.2) pg MCHC (32.2-35.5) g/dl RDW Std Deviation (36.4-46.3) fL Plt Count (182-369) K/mm3 MPV (9.4-12.3) fl Neut % (Auto) (34.0-71.1) % Lymph % (Auto) (19.3-51.7) % [place] % (Auto) (4.7-12.5) % Eos % (Auto) (0.7-5.8) Baso % (Auto) (0.1-1.2) % Neut # (Auto) (1.56-6.13) K/mm3 Lymph # (Auto) (1.18-3.74) K/mm3 [place] # (Auto) (0.24-0.36) K/mm3 Eos # (Auto) (0.04-0.36) K/mm3 Baso # (Auto) (0.01-0.08) K/mm3 Manual Slide Review Sodium 143 (136-145) mEq/L Potassium 3.1 L (3.5-5.1) mEq/L Chloride 106 (98-107) mEq/L Carbon Dioxide 25 (21-32) mEq/L Anion Gap 15.1 H (5-15) BUN 9 (7-18) mg/dL Creatinine 0.8 (0.55-1.02) mg/dL Est Cr Clr Drug Dosing 84.95 mL/min Estimated GFR (MDRD) > 60 (>60) mL/min BUN/Creatinine Ratio 11.3 L (14-18) Glucose 153 H (70-99) mg/dL Calcium 8.3 L (8.5-10.1) mg/dL Total Bilirubin 0.3 (0.2-1.0) mg/dL AST 21 (15-37) U/L ALT 53 (14-59) U/L Alkaline Phosphatase 45 L (46-116) U/L C-Reactive Protein 1.6 H* (<1.0) mg/dL Total Protein 6.9 (6.4-8.2) g/dl Albumin 3.4 (3.4-5.0) g/dl Globulin 3.5 gm/dL Albumin/Globulin Ratio 1.0 (1-2) HCG, Qual (NEGATIVE) Urine Color (Yellow) Urine Appearance (Clear) Urine pH (5.0-8.0) Ur Specific [place] (1.005-1.030) Urine Protein (Negative) Urine Glucose (UA) (Negative) Urine Ketones (Negative) Urine Occult Blood (Negative) Urine Nitrite (Negative) Urine Bilirubin (Negative) Urine Urobilinogen (0.2-1.0) Ur Leukocyte Esterase (Negative) Urine RBC (0-5) /hpf Urine WBC (0-5) /hpf Ur Squamous Epith Cells (0-5) /hpf Urine Bacteria (FEW) /hpf Urine Mucus (FEW) /hpf Meds: Medications Generic Name Dose Route Start Last Admin Trade Name Freq PRN Reason Stop Dose Admin Sodium Chloride 1,000 mls @ 150 mls/hr 08/23/20 20:04 08/23/20 20:16 Normal Saline IV 08/24/20 02:43 150 mls/hr NOW STA Administration Sodium Chloride 100 mls @ 60 drops/min 08/23/20 22:00 08/23/20 22:04 Normal Saline IV 60 drops/min ASDIRECTED MIGUEL ANGEL Administration Sodium Chloride 10 ml 08/23/20 22:00 08/23/20 22:04 Sodium Chloride 0.9% 10 Ml Syringe FLUSH 10 ml BOLUS MIGUEL ANGEL Administration Discontinued Medications Generic Name Dose Route Start Last Admin Trade Name Freq PRN Reason Stop Dose Admin Iopamidol 100 ml 08/23/20 22:00 08/23/20 22:04 Iopamidol 612 Mg/Ml 100 Ml Bottle IVPUSH 08/23/20 22:01 100 ml ONETIME ONE Administration - Re-Assessments/Exams Free Text/Narrative Re-Assessment/Exam: Patient is a 39-year-old female presenting to the emergency department with complaints of lower abdominal pain that began this morning. She has no other associated symptoms. On exam, she does have tenderness to the left lower quadrant and middle lower abdomen. She has no tenderness in the right lower quadrant. Exam is otherwise unremarkable. Given the location of her pain, concern would be for possible diverticulitis. She denies the need for any pain medication at this time. I have ordered IV fluids of NS 150 ml/hour, blood work, and CT scan of the abdomen pelvis with IV and oral contrast. 08/23/20 23:00 Hematology significant for WBC minimally elevated at 10.24, potassium 3.1, CRP 1.6. Urinalysis was normal. test is negative. CT scan of the abdomen pelvis shows 1. Fatty infiltration of liver. 2. Post cholecystectomy. 3. Indeterminate right adrenal nodule. Statistically abnormal is most likely. 4. No acute abdominal findings. On review of CT images, patient does have increased stool throughout her colon which may be contributing to her left lower quadrant abdominal pain. Discussed that the oral contrast that she drink serves as somewhat of a laxative so this may be enough to resolve this. If she does not have a good bowel movement within the next 12 to 16 hours, recommend [id number] MiraLAX. Discussed that she should follow-up with her primary care provider to discuss the findings of the adrenal nodule and for management with regards to this. She verbalized understanding. Discharge instructions as documented. Departure - Departure Time of Disposition: 23:00 Disposition: Home, Self-Care 01 Condition: Good Clinical Impression: Abdominal pain Qualifiers: Abdominal location: lower abdomen, unspecified Qualified Code(s): R10.30 - Lower abdominal pain, unspecified - Discharge Information *PRESCRIPTION DRUG MONITORING PROGRAM REVIEWED*: No *COPY OF PRESCRIPTION DRUG MONITORING REPORT IN PATIENT IRINEO: No Referrals: Janny Chavarria MD [Primary Care Provider] - Forms: ED Department Discharge Additional Instructions: You were seen in the emergency department today for lower abdominal pain. Work- up included blood work, urinalysis, test, and a CT scan of the abdomen pelvis. Results of your work-up showed that you have a an adrenal nodule which is most times benign. Work-up was otherwise normal. You did have some increased stool without your colon which could be the cause of your lower abd ominal pain. As we discussed, the oral contrast that you drink is somewhat of a laxative and will often cause bowel movements. If you fail to have bowel movement the next 12 to 18 hours, recommend some [id number] MiraLAX. Schedule follow-up appoint with your primary care provider at her next available visit to discuss the findings of the adrenal nodule. If you should experience any new or worsening symptoms, please not hesitate to return to the emergency department for reevaluation. Sepsis Event Note (ED) - Evaluation Sepsis Screening Result: No Definite Risk - Focused Exam Vital Signs: Vital Signs Temp Pulse Resp BP Pulse Ox 08/23/20 19:48 97.6 F 84 18 145/97 H 97 - My Orders Last 24 Hours: My Active Orders 08/23/20 20:04 Abdomen Pelvis w Cont [CT] Stat Sodium Chloride 0.9% [Normal Saline] 1,000 ml IV NOW 08/23/20 22:00 Sodium Chloride 0.9% [Normal Saline] 100 ml IV ASDIRECTED Sodium Chloride 0.9% [Saline Flush] 10 ml FLUSH BOLUS - Assessment/Plan Last 24 Hours: My Active Orders 08/23/20 20:04 Abdomen Pelvis w Cont [CT] Stat Sodium Chloride 0.9% [Normal Saline] 1,000 ml IV NOW 08/23/20 22:00 Sodium Chloride 0.9% [Normal Saline] 100 ml IV ASDIRECTED Sodium Chloride 0.9% [Saline Flush] 10 ml FLUSH BOLUS
[2020-08-23] MEDS ORDERED: Sodium Chloride 0.9% 10 ML Syringe FLUSH SCH (22:00)
[2020-08-23] MEDS ORDERED: Iopamidol 612 MG/ML 100 ML Bottle IVPUSH ONE (22:00)
[2020-08-23] MEDS ORDERED: Sodium Chloride 0.9% 100 ML IV SCH (22:00)
[2020-08-23 23:12] VITALS: BP 131/85; PULSE 68
--- NOTE | 2020-08-24 08:33 | CT ---
CT abdomen and pelvis Technique: Multiple axial sections were obtained from above the dome of the diaphragm inferiorly through the pubic symphysis. Intravenous and oral contrast was utilized. Delayed images were obtained through the abdomen. Reconstructed coronal and sagittal images were obtained. Comparison: No prior CT abdomen or pelvis study is available. Findings: Visualized lung bases show nothing acute. Slight fatty infiltration is seen within the liver. Spleen size is normal. There is contrast noted within the distal esophagus most likely representing mild gastroesophageal reflux. Nodule is noted within the right side of the adrenal gland. This nodule measures about 2.4 cm in greatest size. This nodule is nonspecific regarding Hounsfield unit measurements but given the patient's age is most likely representing an adrenal adenoma. Left adrenal gland appears normal. Prior cholecystectomy is noted. Pancreas is normal. Soft tissue finding is seen medial to the spleen compatible with accessory splenic tissue. Kidneys show symmetric contrast enhancement with no hydronephrosis or mass. Abdominal aorta shows no aneurysm. Small retroperitoneal lymph nodes which are seen believed to be within normal limits. No pelvic mass or adenopathy is seen. Minimal cyst is noted within the vagina measuring 1.5 cm which is most likely benign. No free fluid or inflammatory change is appreciated. Appendix is seen which is normal in size. Delayed images show contrast excretion from both kidneys into nondilated ureters. Contrast is also seen within the bladder. Bone window settings were reviewed which show mild scattered degenerative change within the spine. No acute osseous abnormality is appreciated. Impression: 1. Mild gastroesophageal reflux. 2. Fatty infiltration within the liver. Previous cholecystectomy. 3. Nodule within the right adrenal gland statistically due to adrenal adenoma. Other findings believed to be benign as noted above. 4. Nothing acute is definitely appreciated on CT study of the abdomen and pelvis. Diagnostic code #2 I agree with preliminary report from [facility], finalized on 08/23/20, 11:51 PM CDT, code 1
== END 2020-08-23 23:12 | disposition home or self-care (01) ==
LOC: JD.ED 19:34
DX: R10.32 Left lower quadrant pain (principal); J45.909 Unspecified asthma, uncomplicated; Z72.0 Tobacco use; Z79.899 Other long term (current) drug therapy; Z88.5 Allergy status to narcotic agent; Z91.030 Bee allergy status
CPT/HCPCS: 36415; 74177; 80053; 81001; 84703; 85025; 86140; 99284; J7030; Q9967

== ENCOUNTER 2021-04-07 17:35 | Emergency (ER) | payer MEDICAID ==
[2021-04-07] MEDS ORDERED: Ketorolac 60 MG/2 ML SDV IM ONE (17:55)
[2021-04-07] MEDS ORDERED: traMADol 50 MG Tab PO ONE (17:56)
[2021-04-07] MEDS ORDERED: Amoxicillin/Clavulanate K 875-125 MG Tab PO ONE (17:56)
[2021-04-07 18:07] VITALS: BP 158/99; PULSE 78
== END 2021-04-07 18:13 | disposition home or self-care (01) ==
LOC: JD.ED 17:35
DX: K02.9 Dental caries, unspecified (principal); E11.9 Type 2 diabetes mellitus without complications; Z91.030 Bee allergy status; Z88.5 Allergy status to narcotic agent; Z88.8 Allergy status to other drugs, medicaments and biological substances; Z79.84 Long term (current) use of oral hypoglycemic drugs; Z72.0 Tobacco use
CPT/HCPCS: 96372; 99282; A9270; J1885; 99284

== ENCOUNTER 2021-10-25 20:31 | Emergency (ER) | payer MEDICAID ==
[2021-10-25 23:50] VITALS: BP 145/91; PULSE 75
[2021-10-26] MEDS ORDERED: Benzonatate 100 MG Cap PO ONE (00:32)
== END 2021-10-26 02:00 | disposition home or self-care (01) ==
LOC: JD.ED 20:31
DX: J20.8 Acute bronchitis due to other specified organisms (principal); E11.9 Type 2 diabetes mellitus without complications; F17.210 Nicotine dependence, cigarettes, uncomplicated; Z88.6 Allergy status to analgesic agent; Z91.030 Bee allergy status; Z88.5 Allergy status to narcotic agent; Z79.899 Other long term (current) drug therapy; Z79.84 Long term (current) use of oral hypoglycemic drugs; Z90.49 Acquired absence of other specified parts of digestive tract; Z20.822 Contact with and (suspected) exposure to COVID-19
CPT/HCPCS: 71046; 86615; 87635; 99285; A9270; 36415; 99284; U0002

== ENCOUNTER 2022-01-10 19:12 | Emergency (ER) | payer MEDICAID ==
[2022-01-10 19:51] VITALS: PULSE 98
[2022-01-10 20:39] LABS: CORONAVIRUS COVID-19 NAA NEGATIVE (NEGATIVE)
[2022-01-10] MEDS ORDERED: predniSONE 20 MG Tab PO ONE (21:00)
[2022-01-10 21:51] VITALS: BP 144/84
== END 2022-01-10 21:50 | disposition home or self-care (01) ==
LOC: JD.ED 19:12
DX: J45.20 Mild intermittent asthma, uncomplicated (principal); B34.9 Viral infection, unspecified; M19.90 Unspecified osteoarthritis, unspecified site; E11.9 Type 2 diabetes mellitus without complications; Z88.6 Allergy status to analgesic agent; Z91.030 Bee allergy status; Z88.5 Allergy status to narcotic agent; Z79.84 Long term (current) use of oral hypoglycemic drugs; Z79.899 Other long term (current) drug therapy; Z20.822 Contact with and (suspected) exposure to COVID-19
CPT/HCPCS: 0241U; 99284; J7512

== ENCOUNTER 2022-12-11 05:42 | Emergency (ER) | payer MEDICAID ==
[2022-12-11 06:15] LABS: APPEARANCE,URINE SLT CLOUDY (Clear); BILIRUBIN,URINE NEGATIVE (Negative); COLOR,URINE YELLOW (Yellow); GLUCOSE,URINE 2+ (Negative); KETONES,URINE NEGATIVE (Negative); LEUKOCYTE ESTERASE,URINE 1+ (Negative); NITRITE,URINE NEGATIVE (Negative); OCCULT BLOOD,URINE 3+ (Negative); PROTEIN,URINE TRACE (Negative); UROBILINOGEN,URINE 0.2 (0.2-1.0)
[2022-12-11 06:25] LABS: BACTERIA,URINE FEW /hpf (FEW); MUCUS,URINE NOT SEEN /hpf (FEW); RBC,URINE 40-50 /hpf (0-5); SQUAMOUS EPITHELIAL CELLS,UR 0-5 /hpf (0-5); WBC CLUMPS,URINE FEW /hpf (NOT SEEN); WBC,URINE 20-30 /hpf (0-5)
[2022-12-11] MEDS ORDERED: Cefdinir 300 MG Cap PO ONE (06:55)
[2022-12-11 07:13] VITALS: BP 118/54; PULSE 67
== END 2022-12-11 07:10 | disposition home or self-care (01) ==
LOC: JD.ED 05:42
DX: N39.0 Urinary tract infection, site not specified (principal); J45.909 Unspecified asthma, uncomplicated; E11.9 Type 2 diabetes mellitus without complications; Z88.6 Allergy status to analgesic agent; Z91.030 Bee allergy status
CPT/HCPCS: 81001; 87086; 99283; A9270

== ENCOUNTER 2023-12-15 17:32 | Emergency (ER) | payer MEDICAID ==
[2023-12-15 18:17] LABS: BASOPHILS PERCENT AUTO 0.4 % (0.0-1.0); EOSINOPHILS ABSOLUTE AUTO 0.2 K/mm3 (0.0-0.4); EOSINOPHILS PERCENT AUTO 1.7 % (0.0-6.0); HEMATOCRIT 44.3 % (37.0-47.0); HEMOGLOBIN 14.8 gm/dl (12.0-16.0); IMMATURE GRAN ABSOLUTE AUTO 0.03 K/mm3 (0.00-0.05); IMMATURE GRAN PERCENT AUTO 0.3 % (0.0-0.4); LYMPHOCYTES ABSOLUTE AUTO 3.3 K/mm3 (1.0-4.8); LYMPHOCYTES PERCENT AUTO 31.9 % (24.0-44.0); MEAN CORPUSCULAR HEMOGLOBIN 28.4 pg (28.0-32.0); MEAN CORPUSCULAR HGB CONC 33.4 g/dl (32.0-36.0); MEAN CORPUSCULAR VOLUME 84.9 fl (83.0-99.0); MEAN PLATELET VOLUME 10.2 fl (9.4-12.3); MONOCYTES ABSOLUTE AUTO 0.7 K/mm3 (0.0-0.8); MONOCYTES PERCENT AUTO 6.4 % (0.0-8.0); NEUTROPHILS ABSOLUTE AUTO 6.1 K/mm3 (1.8-7.7); NEUTROPHILS PERCENT AUTO 59.3 % (41.0-71.0); PLATELET COUNT,PLT 267 K/mm3 (150-400); RED BLOOD CELL COUNT 5.22 M/mm3 (4.10-5.30); WHITE BLOOD CELL COUNT,WBC 10.19 K/mm3 (3.9-11.3)
[2023-12-15 18:29] LABS: ALBUMIN 3.9 g/dl (3.4-5.0); ANION GAP 13.5 (5-15); BILIRUBIN TOTAL 0.3 mg/dL (0.2-1.0); BUN/CREATININE RATIO 14.3 (14-18); CALCIUM 9.3 mg/dL (8.5-10.1); CREATININE 0.7 mg/dL (0.55-1.02); EST CRCL DRUG DOSING (CG) 93.25 mL/min; POTASSIUM,K 3.5 mEq/L (3.5-5.1); PROTEIN TOTAL,TP 7.7 g/dl (6.4-8.2)
[2023-12-15] MEDS: Sodium Chloride 0.9% 1,000 ML IV ONE (18:40)
[2023-12-15] MEDS: Alum Hydrox/Mag Hydrox/Simeth 30 ML, Lidocaine 2% 15 ML PO ONE (18:40)
[2023-12-15] MEDS: Ondansetron 4 MG/2 ML SDV IVPUSH ONE (18:40)
[2023-12-15 20:15] VITALS: BP 140/92; PULSE 79
== END 2023-12-15 20:11 | disposition home or self-care (01) ==
LOC: JD.ED 17:32
DX: A08.4 Viral intestinal infection, unspecified (principal); I10 Essential (primary) hypertension; E11.9 Type 2 diabetes mellitus without complications; F17.210 Nicotine dependence, cigarettes, uncomplicated; Z79.899 Other long term (current) drug therapy; Z88.6 Allergy status to analgesic agent; Z88.8 Allergy status to other drugs, medicaments and biological substances; Z91.030 Bee allergy status; Z91.048 Other nonmedicinal substance allergy status
CPT/HCPCS: 36415; 80053; 85025; 96361; 96374; 99284-25; A9270-GY; J2405; J7030

== ENCOUNTER 2024-02-13 17:09 | Emergency (ER) | payer MEDICAID ==
[2024-02-13] MEDS: Sodium Chloride 0.9% 1,000 ML IV ONE (18:07)
[2024-02-13 18:11] LABS: BASOPHILS PERCENT AUTO 0.3 % (0.0-1.0); EOSINOPHILS ABSOLUTE AUTO 0.2 K/mm3 (0.0-0.4); EOSINOPHILS PERCENT AUTO 1.8 % (0.0-6.0); HEMOGLOBIN 14.7 gm/dl (12.0-16.0); IMMATURE GRAN ABSOLUTE AUTO 0.04 K/mm3 (0.00-0.05); IMMATURE GRAN PERCENT AUTO 0.3 % (0.0-0.4); LYMPHOCYTES ABSOLUTE AUTO 3.7 K/mm3 (1.0-4.8); LYMPHOCYTES PERCENT AUTO 31.8 % (24.0-44.0); MEAN CORPUSCULAR HEMOGLOBIN 29.2 pg (28.0-32.0); MEAN CORPUSCULAR HGB CONC 32.7 g/dl (32.0-36.0); MEAN CORPUSCULAR VOLUME 89.3 fl (83.0-99.0); MEAN PLATELET VOLUME 10.3 fl (9.4-12.3); MONOCYTES ABSOLUTE AUTO 0.6 K/mm3 (0.0-0.8); MONOCYTES PERCENT AUTO 5.1 % (0.0-8.0); NEUTROPHILS ABSOLUTE AUTO 7.1 K/mm3 (1.8-7.7); NEUTROPHILS PERCENT AUTO 60.7 % (41.0-71.0); PLATELET COUNT,PLT 234 K/mm3 (150-400); RED BLOOD CELL COUNT 5.04 M/mm3 (4.10-5.30); WHITE BLOOD CELL COUNT,WBC 11.69 K/mm3 (3.9-11.3)
[2024-02-13 18:35] LABS: ANION GAP 14.4 (5-15); BILIRUBIN TOTAL 0.3 mg/dL (0.2-1.0); BUN/CREATININE RATIO 11.4 (14-18); C-REACTIVE PROTEIN 1.23 mg/dL (<0.30); CALCIUM 9.2 mg/dL (8.5-10.1); CREATININE 0.7 mg/dL (0.55-1.02); EST CRCL DRUG DOSING (CG) 93.25 mL/min; POTASSIUM,K 3.4 mEq/L (3.5-5.1); PROTEIN TOTAL,TP 8.1 g/dl (6.4-8.2)
[2024-02-13] MEDS: Metoclopramide 10 MG/2 ML SDV IVPUSH ONE (19:17)
[2024-02-13 21:41] VITALS: BP 141/92; PULSE 74
== END 2024-02-13 21:08 | disposition home or self-care (01) ==
LOC: JD.ED 17:09
DX: R19.7 Diarrhea, unspecified (principal); R11.0 Nausea; I10 Essential (primary) hypertension; J45.909 Unspecified asthma, uncomplicated; E11.9 Type 2 diabetes mellitus without complications; F17.210 Nicotine dependence, cigarettes, uncomplicated; Z90.49 Acquired absence of other specified parts of digestive tract; Z88.5 Allergy status to narcotic agent; Z88.6 Allergy status to analgesic agent; Z91.030 Bee allergy status; Z91.048 Other nonmedicinal substance allergy status; Z79.51 Long term (current) use of inhaled steroids; Z79.899 Other long term (current) drug therapy
CPT/HCPCS: 36415; 71045; 80053; 83690; 84484; 85025; 86140; 87428; 93005; 96361; 96374; 99285; J2765; J7030; 93010; 99284